=== PATIENT | male | born 2005 | race Caucasian/White ===

== ENCOUNTER 2023-01-15 08:20 | Day surgery (SDC) | payer BC ==
--- NOTE | 2023-01-13 12:47 | P.HPOR ---
History of Present Illness H&P Date: 01/13/23 Chief Complaint: Right wrist soft tissue mass Subjective: This is a 17 year old male that presents today for follow up evaluation regarding a right doral wrist mass that has been present for 1.5 years. He states the mass in not painful, but has not changed in size and is becoming more of an annoyance. He denies any prior injury to this wrist in the past. He denies any paresthesias and is currently a college student at [employer]. Physical Examination: RUE: AIN/PIN/Radial/Ulnar/Median motor intact. Radial/Ulnar/Median SILT. 2+/4 Radial/Ulnar pulses palpated. Mobile dorsal wrist mass measuring 4x4cm overlying dorsal S-L interval. Wrist flexion/extension 90/90. Negative scaphoid shift. Negative finger extension test. Imagin[facility] X-ray of right wrist reviewed from 08/06/21 in office demonstrates no acute abnormality Impression: 1.)Right dorsal wrist soft tissue mass Plan: Diagnosis and treatment options were discussed with the patient. Due to the mass being persistent now for over a year he would like it removed. Risks and benefits of surgery including bleeding, infection, damage to surrounding tissue, recurrence, need for further surgery, residual numbness were discussed and the patient wished to go forward with surgery with right wrist dorsal soft tissue mass excision. -Eliseo Scott DO Orthopedic Hand/Upper Extremity Surgeon Past Medical History Additional Past Medical History / Comment(s): MASS TO RIGHT WRIST History of Any Multi-Drug Resistant Organisms: None Reported Additional Past Surgical History / Comment(s): SPINAL TAP Past Anesthesia/Blood Transfusion Reactions: No Reported Reaction Smoking Status: Never smoker - Past Family History Mother Family Medical History: No Reported History Medications and Allergies Home Medications Medication Instructions Recorded Confirmed Type Methylphenidate HCl [Concerta] 27 mg PO DAILY 01/13/23 01/13/23 History Allergies Allergy/AdvReac Type Severity Reaction Status Date / Time No Known Allergies Allergy Verified 01/13/23 09:20 Physical Examination Osteopathic Statement: *. No significant issues noted on an osteopathic structural exam other than those noted in the History and Physical/Consult.
[~2023-01-15 08:20] MED LIST: LACTATED RINGERS 1,000 ML IV SCH
[2023-01-15] MEDS ORDERED: ONDANSETRON 4 MG/2 ML VIAL ONE (08:44)
[2023-01-15 08:50] VITALS: RESP 16
[2023-01-15] MEDS ORDERED: ONDANSETRON 4 MG/2 ML VIAL IVP ONE (08:50)
[2023-01-15] MEDS ORDERED: DEXAMETHASONE SOD PHOSPHATE 4 MG/ML 1 ML VIAL IV ONE (08:50)
[2023-01-15] MEDS ORDERED: MIDAZOLAM 2 MG/2 ML VIAL ONE (09:28)
[2023-01-15] MEDS ORDERED: KETOROLAC 15 MG/ML 1 ML VIAL ONE (09:28)
[2023-01-15] MEDS ORDERED: LIDOCAINE 2% INJ 20 MG/ML (2 ML VIAL) ONE (09:28)
[2023-01-15] MEDS ORDERED: PROPOFOL 10 MG/ML 20 ML VIAL IV ONE (09:28)
[2023-01-15] MEDS ORDERED: fentaNYL (PF) 50 MCG/ML 2 ML AMP ONE (09:28)
[2023-01-15] MEDS ORDERED: BUPIVACAINE (PF) 0.5% 30 ML VIAL SQ ONE ×2 (09:46→10:12)
[2023-01-15] MEDS ORDERED: LIDOCAINE 1% INJ 10MG/ML (10 ML MDV) SQ ONE ×2 (09:46→10:12)
[2023-01-15 10:30] VITALS: TEMP 97
[2023-01-15 11:24] VITALS: BP 138/81; PULSE 83
--- NOTE | 2023-01-15 17:34 | P.OP ---
Date of Procedure: 01/15/23 Preoperative Diagnosis: Right wrist dorsal ganglion cyst Postoperative Diagnosis: Right wrist dorsal ganglion cyst Procedure(s) Performed: 1.) Right wrist dorsal ganglion cyst excision 2.) Right wrist arthrotomy Anesthesia: GETA Estimated Blood Loss (ml): 0 Pathology: none sent Condition: stable Disposition: PACU Description of Procedure: This is a 17 year old male who presents today for right wrist soft tissue mass excision and wrist arthrotomy after having failed conservative treatment. Risks and benefits of surgery were discussed with the patient including bleeding, damage to surrounding tissue, infection, need for further surgery as well as risks of anesthesia including pulmonary embolism and even and the patient wished to proceed with surgical intervention. The patient was seen in the pre- operative area by myself. Consent and H&P were completed and updated. The correct extremity was marked in the pre-operative area by myself and all other questions were answered. Operative Narrative: The patient was brought to the operating room by the department of anesthesia. They remained on the portable stretcher and a rolling hand table was brought to the side of the operative extremity. Pre-operative time out was performed indicating the correct patient, procedure and laterality. All in the room agreed. Pre-operative antibiotics were given prior to skin incision. The patient was then drifted off to sleep by the department of anesthesia. A nonsterile tourniquet was then applied to the operative extremity and the right upper extremity was then prepped and draped in normal sterile fashion. The operative extremity was the exsanguinated with an esmarch bandage and the tourniquet was inflated to 250mmHg. A transverse incision was made over the dorsal aspect of the wrist overlying the prominent soft tissue mass. Blunt dissection was taken down through subcutaneous tissues taking care to preserve the superficial radial sensory branches. The distal edge of the extensor retinaculum was identified and the 4th extensor compartment tendons were gently retracted ulnarly. Deep to the extensor tendons a 5x5cm round clear gelatinous mass was identified. The mass was carefully dissected out and direct communication of the stalk was followed down to the radiocarpal joint. A small portion of dorsal capsule was excised at the origin of the stalk and small amount of inflamed synovial tissue was identified an excised after making an arthrotomy. Bipolar cautery was used to cauterize the origin of the stalk taking care to preserve the dorsal SLIL. The mass was collected and sent to pathology. The wound was then closed with 4-0 Monocryl suture followed by masistol and steri strips and 10cc's of 0.5 % bupivicaine was injected into the surgical area. A soft dressing consisting of 4x4s, cast padding and an anna wrap was applied. Tourniquet was let down and the digits had immediate normal perfusion. Eliseo Scott D.O. Orthopedic Hand/Upper Extremity Surgeon
== END 2023-01-15 11:45 | disposition home or self-care (01) ==
LOC: OR 08:20
PROVIDERS: ATTEND Orthopaedic Surgery Hand Surgery
DX: M67.431 Ganglion, right wrist (principal); Z98.890 Other specified postprocedural states; Z79.899 Other long term (current) drug therapy
CPT/HCPCS: 88304; 25075; J2250; J1100; J0690; J2405; J3010; J1885; J2001 ×2; J2704

== ENCOUNTER → 2023-10-24 | Outpatient (CLI) | payer BC ==
[2023-10-24 16:19] LABS: Basophils # (A) 0.06 X 10*3/uL (0.00-0.10); Eosinophils # (A) 0.32 X 10*3/uL (0.04-0.35); Eosinophils % (A) 5.4 %; HCT 46.5 % (39.6-50.0); Lymphocytes # (A) 1.98 X 10*3/uL (0.90-5.00); Lymphocytes % (A) 33.2 %; MCH 29.7 pg (27.0-32.0); MCHC 34.4 g/dL (32.0-37.0); MCV 86.4 FL (80.0-97.0); Mean Platelet Volume 9.8 FL (9.5-12.2); Monocytes # (A) 0.51 X 10*3/uL (0.20-1.00); Monocytes % (A) 8.6 %; NRBC Per 100 WBC 0 X 10*3/uL (0.00-0.01); Neutrophils # (A) 3.05 X 10*3/uL (1.80-7.70); Neutrophils % (A) 51.1 %; Platelet Count 249 X 10*3/uL (140-440); RBC 5.38 X 10*6/uL (4.40-5.60); RDW 12.4 % (11.5-14.5); WBC 5.96 X 10*3/uL (4.50-10.00)
[2023-10-24 16:54] LABS: Blood Urea Nitrogen 9.6 mg/dL (9.0-27.0); Chloride 104 mmol/L (96-109); Chol/HDL Ratio 3.21 Ratio; Glucose 91 mg/dL (70-110); LDL Cholesterol,Calculated 65.7 mg/dL (0.0-131.0); Potassium 4.3 mmol/L (3.5-5.5); Sodium 140 mmol/L (135-145)
[2023-10-24 16:55] LABS: ALT 77 U/L (10-49); AST 34 U/L (14-35); Albumin 4.5 g/dL (3.8-4.9); Albumin/Globulin Ratio 1.67 Ratio (1.60-3.17); Alkaline Phosphatase 83 U/L (41-126); Calcium 9.6 mg/dL (8.7-10.3); Globulin 2.7 g/dL (1.6-3.3); Total Bilirubin 0.5 mg/dL (0.3-1.2); Total Protein 7.2 g/dL (6.2-8.2)
== END | disposition home or self-care (01) ==
LOC: LABWHC1 10:12
PROVIDERS: ATTEND Internal Medicine
DX: Z00.00 Encounter for general adult medical examination without abnormal findings (principal); Z11.59 Encounter for screening for other viral diseases
CPT/HCPCS: 36415; 80053; 80061; 84443; 85025; 86803

== ENCOUNTER → 2023-11-05 | Outpatient (CLI) | payer BC ==
[2023-11-05 17:03] LABS: ALT 75 U/L (4-49); AST 41 U/L (17-59); African American GFR (CKD) >90 (>60 ml/min/1.73 sqM); Albumin 4.9 g/dL (3.5-5.0); Albumin/Globulin Ratio 1.4; Alkaline Phosphatase 72 U/L (38-126); Anion Gap 11 mmol/L; Bilirubin,Unconjugated 0.4 mg/dL (0.0-1.1); Blood Urea Nitrogen 13 mg/dL (9-20); Calcium 9.7 mg/dL (8.4-10.2); Carbon Dioxide 21 mmol/L (22-30); Chloride 107 mmol/L (98-107); Globulin 3.4 g/dL; Glucose 80 mg/dL (74-99); Non-African American GFR(CKD) >90 (>60 ml/min/1.73 sqM); Potassium 4.9 mmol/L (3.5-5.1); Sodium 139 mmol/L (137-145); Total Bilirubin 0.7 mg/dL (0.2-1.3); Total Protein 8.3 g/dL (6.3-8.2)
[2023-11-06 02:48] LABS: Hepatitis B Surface Antigen Nonreactive
[2023-11-06 02:49] LABS: Hepatitis A Antibody IgM Nonreactive; Hepatitis B Core IgM Nonreactive; Hepatitis C IgG Antibody Nonreactive
[2023-11-06 02:51] LABS: % Iron Saturation 18.67 (15.00-50.00); Iron 70 UG/DL (65-175); Total Iron Binding Capacity 375 UG/DL (228-460)
[2023-11-06 03:05] LABS: Ceruloplasmin 23.8 mg/dL (20.0-60.0)
[2023-11-06 04:59] LABS: EBV - VCA IgM <10.0 U/mL (<36.0)
[2023-11-06 11:15] LABS: Smooth Muscle Antibody 11 UNITS (<20)
== END | disposition home or self-care (01) ==
LOC: LABWHC1 15:35
PROVIDERS: ATTEND Internal Medicine
DX: R74.01 Elevation of levels of liver transaminase levels (principal)
CPT/HCPCS: 36415; 80053; 80074; 82103; 82248; 82390; 82525; 83516; 83540; 83550; 86038; 86645; 86665

== ENCOUNTER → 2024-01-14 | Outpatient (CLI) | payer BC ==
--- NOTE | 2024-01-14 09:47 | US ---
EXAMINATION TYPE: US liver DATE OF EXAM: 01/14/2024 COMPARISON: NONE CLINICAL INDICATION: Male, 18 years old with history of R74.01 ELEVATION OF LEVELS OF LIVER TRANSAMIN ASE L; elevated liver enzymes TECHNIQUE: Multiple sonographic images of the right upper quadrant are obtained. FINDINGS: EXAM MEASUREMENTS: Liver Length: 16.4 cm Gallbladder Wall: 0.1 cm CBD: 0.2 cm Right Kidney: 10.6x6.2x5.7 cm BELT LACER NOTES: Pancreas: Tail obscured by overlying bowel gas Liver: increased size, echogenicity and attenuation Gallbladder: wnl Evidence for sonographic Pacheco's sign: no CBD: wnl Right Kidney: No hydronephrosis or masses seen exam limited by bowel, body habitus, and liver attenuation IMPRESSION: 1. Mild hepatomegaly. Some mild fatty infiltration within the liver is present.
== END | disposition home or self-care (01) ==
LOC: RADUSWWP 08:56
PROVIDERS: ATTEND Internal Medicine
DX: K76.0 Fatty (change of) liver, not elsewhere classified (principal); R16.0 Hepatomegaly, not elsewhere classified; R74.01 Elevation of levels of liver transaminase levels
CPT/HCPCS: 76705